=== PATIENT | male | born 1965 | race Caucasian/White ===

== ENCOUNTER 2023-10-28 10:19 | Day surgery (SDC) | payer BC ==
[2023-10-27 09:12] VITALS: BMI 30.4
[2023-10-28] MEDS ORDERED: Bupivacaine PF 0.5% 30 ML VIAL ONE (10:37)
[2023-10-28] MEDS ORDERED: Clindamycin/D5W 900 mg/50 ml Premix Bag ONE (11:22)
[2023-10-28] MEDS ORDERED: Lidocaine 1% PF 5 ML VIAL ONE (11:38)
[2023-10-28] MEDS ORDERED: PROPOFOL 20 ML ONE (11:38)
[2023-10-28] MEDS ORDERED: fentaNYL 50 mcg/mL 1 mL Vial ONE (11:38)
[2023-10-28] MEDS ORDERED: Dexamethasone 4 mg/ml Vial ONE (12:10)
[2023-10-28] MEDS ORDERED: Ondansetron PF 4 MG/2 ML Vial ONE (12:10)
[2023-10-28] MEDS ORDERED: oxyCODONE 5 MG TAB ONE (13:51)
== END 2023-10-28 14:30 | disposition home or self-care (01) ==
LOC: CSHSDC 10:19
PROVIDERS: ATTEND Podiatrist Foot & Ankle Surgery
PROC: 0SRM0JZ Replacement of Right Metatarsal-Phalangeal Joint with Synthetic Substitute, Open Approach (ICD-10-PCS; principal; 2023-10-28)
PROC: 0SGP04Z Fusion of Right Toe Phalangeal Joint with Internal Fixation Device, Open Approach (ICD-10-PCS; principal; 2023-10-28)
DX: M20.41 Other hammer toe(s) (acquired), right foot (principal); M20.21 Hallux rigidus, right foot; J45.20 Mild intermittent asthma, uncomplicated; I11.9 Hypertensive heart disease without heart failure; F17.210 Nicotine dependence, cigarettes, uncomplicated; E66.9 Obesity, unspecified; Z68.30 Body mass index [BMI] 30.0-30.9, adult; Z79.51 Long term (current) use of inhaled steroids; Z88.0 Allergy status to penicillin; Z88.5 Allergy status to narcotic agent; Z88.8 Allergy status to other drugs, medicaments and biological substances
CPT/HCPCS: C1776; J0665; J1100; J2405; J2704; J3010; J3490